=== PATIENT | female | born 1995 | race Asian ===

== ENCOUNTER 2019-01-11 14:59 | Emergency (ER) | payer OTHER ==
[~2019-01-11] VITALS: Ht 149.9 cm; Wt 71.2 kg
--- NOTE | 2019-01-11 15:19 | NUR ---
NO ANSWER FOR TRIAGE AT [id number]
[2019-01-11] MEDS ORDERED: DIPH,PERTUSS(ACELL),TET VAC/PF 0.5 ML IM-VACC ONE ×3 (15:30→16:24)
--- NOTE | 2019-01-11 16:34 | NUR ---
wound dressed by EDT
--- NOTE | 2019-01-11 16:48 | NUR ---
CHRISTINA Muniz discussed rabies vaccine/risk with pt, pt elects rabies vaccine. awaiting vaccine delivery from pharmacy.
[2019-01-11] MEDS ORDERED: RABIES IMMUNE GLOBULIN/PF 150 UNITS/ML, 2ML IM ONE (17:00)
[2019-01-11] MEDS ORDERED: RABIES VACCINE /PF 2.5 UNITS IM-VACC ONE (17:00)
[2019-01-11 18:23] VITALS: BP 119/68
--- NOTE | 2019-01-11 18:24 | NUR ---
pt medicated per emar, tolerated well. pt given rabies vaccine to right deltoid, and rabies immune globulin was splint into multiple doses, 1mL injected into tissue surrounding wound (per [facility] orders), 2mL injected into each gleuteal muscle, 2mL into each lateral thigh, and .5 mL into left ventrogluteal site. pt tolerated well with no s/sx adverse rxn. pt a&o, resps even and unlabored. pt given dc instructions and script, educated regarding augmentin rx. pt educated to have wound rechecked by provider 2 days from now, and return to ED to complete rabies vaccine series starting 01/14. pt demonstrates understanding. pt's wound re-dressed. pt amb to dc desk with steady gait, nadn at dc.
== END 2019-01-11 18:25 | disposition home or self-care (01) ==
LOC: ED 18:16
DX: S61.452A Open bite of left hand, initial encounter (principal); J45.909 Unspecified asthma, uncomplicated; F17.200 Nicotine dependence, unspecified, uncomplicated; W55.01XA Bitten by cat, initial encounter; Y93.89 Activity, other specified; Y92.89 Other specified places as the place of occurrence of the external cause; Y99.8 Other external cause status
CPT/HCPCS: 90375; 90471; 90472; 90675; 90715; 96372; 99283

== ENCOUNTER 2019-01-12 14:24 | Inpatient (IN) | payer SELFPAY ==
[~2019-01-12] VITALS: Ht 149.9 cm; Wt 70.5 kg
[2019-01-12 15:11] LABS: BASOPHILS # (AUTO) 0.03 x10^3/uL (0-0.1); BASOPHILS % (AUTO) 0 % (0-1); EOSINOPHILS # (AUTO) 0.09 x10^3/uL (0-0.4); EOSINOPHILS % (AUTO) 1 % (1-7); LYMPHOCYTES # (AUTO) 1.32 x10^3/uL (1-3.4); LYMPHOCYTES % (AUTO) 16 % (22-44); MD NO; MEAN CORPUSCULAR HEMOGLOBIN 29.3 pg (27.0-34.8); MEAN CORPUSCULAR HGB CONC 32.3 g/dL (32.4-35.8); MEAN CORPUSCULAR VOLUME 90.7 fL (80-100); MEAN PLATELET VOLUME 8.1 fL (7.4-10.4); MONOCYTES # (AUTO) 0.46 x10^3/uL (0.2-0.8); MONOCYTES % (AUTO) 6 % (2-9); NEUTROPHILS # (AUTO) 6.35 x10^3/uL (1.8-6.8); NEUTROPHILS % (AUTO) 77 % (42-75); PLATELET COUNT 361 x10^3/uL (130-400); RED BLOOD COUNT 4.54 x10^6/uL (3.82-5.3); RED CELL DISTRIBUTION WIDTH 14.4 % (9.6-15.2)
[2019-01-12] MEDS ORDERED: AMPICILLIN/SULBACTAM 3 GM in SODIUM CHLORIDE 0.9% 100 ML IV ONE (16:30)
[2019-01-12] MEDS ORDERED: SODIUM CHLORIDE FLUSH 10ML SYR IVF ONE (16:30)
[2019-01-12 16:52] LABS: ALBUMIN 3.9 g/dL (3.4-5.0); ANION GAP 5 mmol/L (5-15); CALCIUM 8.8 mg/dL (8.5-10.1); CHLORIDE 108 mmol/L (98-107); CREATININE 0.85 mg/dL (0.55-1.02)
[2019-01-12] MEDS ORDERED: SODIUM CHLORIDE FLUSH 10ML SYR IVF PRN (18:00)
[2019-01-12] MEDS ORDERED: DOCUSATE 100 MG CAPSULE PO PRN (18:30)
[2019-01-12] MEDS ORDERED: ACETAMINOPHEN 325 MG TABLET PO PRN (18:30)
[2019-01-12] MEDS ORDERED: TEMAZEPAM 15 MG CAPSULE PO PRN (18:30)
[2019-01-12] MEDS ORDERED: ONDANSETRON ODT 4 MG PO PRN (18:30)
[2019-01-12] MEDS ORDERED: LIDODERM 5% PATCH TD PRN (18:30)
[2019-01-12 19:32] VITALS: BP 117/69
[2019-01-13 00:02] VITALS: BP 113/64
[2019-01-13] MEDS: AMPICILLIN/SULBACTAM 3 GM in SODIUM CHLORIDE 0.9% 100 ML IV SCH ×3 (00:25→16:50)
[2019-01-13 02:37] VITALS: BP 117/69
[2019-01-13 05:41] LABS: BASOPHILS # (AUTO) 0.04 x10^3/uL (0-0.1); BASOPHILS % (AUTO) 1 % (0-1); EOSINOPHILS # (AUTO) 0.13 x10^3/uL (0-0.4); EOSINOPHILS % (AUTO) 2 % (1-7); LYMPHOCYTES # (AUTO) 1.39 x10^3/uL (1-3.4); LYMPHOCYTES % (AUTO) 25 % (22-44); MD NO; MEAN CORPUSCULAR HEMOGLOBIN 30.7 pg (27.0-34.8); MEAN CORPUSCULAR HGB CONC 33.7 g/dL (32.4-35.8); MEAN CORPUSCULAR VOLUME 90.9 fL (80-100); MEAN PLATELET VOLUME 7.9 fL (7.4-10.4); MONOCYTES % (AUTO) 9 % (2-9); NEUTROPHILS # (AUTO) 3.48 x10^3/uL (1.8-6.8); NEUTROPHILS % (AUTO) 63 % (42-75); PLATELET COUNT 280 x10^3/uL (130-400); RED BLOOD COUNT 3.93 x10^6/uL (3.82-5.3); RED CELL DISTRIBUTION WIDTH 14.2 % (9.6-15.2)
[2019-01-13 05:49] LABS: CHLORIDE 111 mmol/L (98-107)
[2019-01-13 05:53] LABS: ANION GAP 6 mmol/L (5-15); CREATININE 0.77 mg/dL (0.55-1.02)
[2019-01-13 07:13] VITALS: BP 119/62
[2019-01-13 15:20] VITALS: BP 100/67
[2019-01-13 18:54] VITALS: BP 99/61
[2019-01-14 00:16] VITALS: BP 102/68
[2019-01-14] MEDS: AMPICILLIN/SULBACTAM 3 GM in SODIUM CHLORIDE 0.9% 100 ML IV SCH ×3 (00:18→17:27)
[2019-01-14 05:42] LABS: BASOPHILS # (AUTO) 0.06 x10^3/uL (0-0.1); BASOPHILS % (AUTO) 1 % (0-1); EOSINOPHILS # (AUTO) 0.23 x10^3/uL (0-0.4); EOSINOPHILS % (AUTO) 4 % (1-7); LYMPHOCYTES # (AUTO) 1.65 x10^3/uL (1-3.4); LYMPHOCYTES % (AUTO) 28 % (22-44); MD NO; MEAN CORPUSCULAR HEMOGLOBIN 30.7 pg (27.0-34.8); MEAN CORPUSCULAR HGB CONC 33.6 g/dL (32.4-35.8); MEAN CORPUSCULAR VOLUME 91.4 fL (80-100); MEAN PLATELET VOLUME 8.1 fL (7.4-10.4); MONOCYTES # (AUTO) 0.43 x10^3/uL (0.2-0.8); MONOCYTES % (AUTO) 7 % (2-9); NEUTROPHILS # (AUTO) 3.55 x10^3/uL (1.8-6.8); NEUTROPHILS % (AUTO) 60 % (42-75); PLATELET COUNT 257 x10^3/uL (130-400); RED BLOOD COUNT 3.95 x10^6/uL (3.82-5.3); RED CELL DISTRIBUTION WIDTH 14.3 % (9.6-15.2)
[2019-01-14 05:48] LABS: ANION GAP 4 mmol/L (5-15); CALCIUM 8.2 mg/dL (8.5-10.1); CHLORIDE 112 mmol/L (98-107); CREATININE 0.81 mg/dL (0.55-1.02)
[2019-01-14] MEDS: RABIES VACCINE /PF 2.5 UNITS IM-VACC ONE ×2 (10:48→11:36)
[2019-01-14 14:00] VITALS: BP 96/61
[2019-01-14 18:35] VITALS: BP 105/69
[2019-01-15 00:05] VITALS: BP 101/68
[2019-01-15] MEDS: AMPICILLIN/SULBACTAM 3 GM in SODIUM CHLORIDE 0.9% 100 ML IV SCH ×3 (00:39→16:55)
[2019-01-15 05:50] LABS: BASOPHILS # (AUTO) 0.04 x10^3/uL (0-0.1); BASOPHILS % (AUTO) 1 % (0-1); EOSINOPHILS # (AUTO) 0.27 x10^3/uL (0-0.4); EOSINOPHILS % (AUTO) 4 % (1-7); LYMPHOCYTES # (AUTO) 1.21 x10^3/uL (1-3.4); LYMPHOCYTES % (AUTO) 19 % (22-44); MD NO; MEAN CORPUSCULAR HEMOGLOBIN 29.6 pg (27.0-34.8); MEAN CORPUSCULAR HGB CONC 32.8 g/dL (32.4-35.8); MEAN CORPUSCULAR VOLUME 90.2 fL (80-100); MEAN PLATELET VOLUME 8.1 fL (7.4-10.4); MONOCYTES # (AUTO) 0.39 x10^3/uL (0.2-0.8); MONOCYTES % (AUTO) 6 % (2-9); NEUTROPHILS # (AUTO) 4.43 x10^3/uL (1.8-6.8); NEUTROPHILS % (AUTO) 70 % (42-75); PLATELET COUNT 250 x10^3/uL (130-400); RED BLOOD COUNT 4.13 x10^6/uL (3.82-5.3); RED CELL DISTRIBUTION WIDTH 14.2 % (9.6-15.2)
[2019-01-15 05:58] LABS: ANION GAP 7 mmol/L (5-15); CALCIUM 8.4 mg/dL (8.5-10.1); CHLORIDE 109 mmol/L (98-107); CREATININE 0.75 mg/dL (0.55-1.02)
[2019-01-15 06:59] LABS: HCT (SEDRATE) 37.2 % (34.6-47.8)
[2019-01-15 07:08] VITALS: BP 112/70
[2019-01-15 12:50] VITALS: BP 104/67
[2019-01-15] MEDS ORDERED: GADOBUTROL 7.5 MMOL/7.5 ML PFS ONE (14:58)
[2019-01-15 20:53] VITALS: BP 109/75
[2019-01-16] MEDS: AMPICILLIN/SULBACTAM 3 GM in SODIUM CHLORIDE 0.9% 100 ML IV SCH ×3 (00:40→16:02)
[2019-01-16 02:03] VITALS: BP 107/69
[2019-01-16 06:10] LABS: BASOPHILS # (AUTO) 0.03 x10^3/uL (0-0.1); BASOPHILS % (AUTO) 1 % (0-1); EOSINOPHILS # (AUTO) 0.36 x10^3/uL (0-0.4); EOSINOPHILS % (AUTO) 6 % (1-7); LYMPHOCYTES # (AUTO) 1.72 x10^3/uL (1-3.4); LYMPHOCYTES % (AUTO) 30 % (22-44); MD NO; MEAN CORPUSCULAR HEMOGLOBIN 30.3 pg (27.0-34.8); MEAN CORPUSCULAR HGB CONC 33.6 g/dL (32.4-35.8); MEAN CORPUSCULAR VOLUME 90.3 fL (80-100); MEAN PLATELET VOLUME 7.8 fL (7.4-10.4); MONOCYTES # (AUTO) 0.38 x10^3/uL (0.2-0.8); MONOCYTES % (AUTO) 7 % (2-9); NEUTROPHILS # (AUTO) 3.29 x10^3/uL (1.8-6.8); NEUTROPHILS % (AUTO) 57 % (42-75); PLATELET COUNT 255 x10^3/uL (130-400); RED BLOOD COUNT 3.97 x10^6/uL (3.82-5.3); RED CELL DISTRIBUTION WIDTH 14.1 % (9.6-15.2)
[2019-01-16 06:16] LABS: CHLORIDE 109 mmol/L (98-107)
[2019-01-16 06:22] LABS: ANION GAP 4 mmol/L (5-15); CALCIUM 8.3 mg/dL (8.5-10.1); CREATININE 0.76 mg/dL (0.55-1.02)
[2019-01-16 07:18] VITALS: BP 87/51
[2019-01-16 21:10] VITALS: BP 104/72
[2019-01-17] MEDS: AMPICILLIN/SULBACTAM 3 GM in SODIUM CHLORIDE 0.9% 100 ML IV SCH ×3 (00:33→16:25)
[2019-01-17 01:30] VITALS: BP 96/54
[2019-01-17 06:18] LABS: BASOPHILS # (AUTO) 0.05 x10^3/uL (0-0.1); BASOPHILS % (AUTO) 1 % (0-1); EOSINOPHILS # (AUTO) 0.36 x10^3/uL (0-0.4); EOSINOPHILS % (AUTO) 6 % (1-7); LYMPHOCYTES # (AUTO) 2.06 x10^3/uL (1-3.4); LYMPHOCYTES % (AUTO) 34 % (22-44); MD NO; MEAN CORPUSCULAR HEMOGLOBIN 29.5 pg (27.0-34.8); MEAN CORPUSCULAR HGB CONC 32.4 g/dL (32.4-35.8); MEAN CORPUSCULAR VOLUME 90.9 fL (80-100); MEAN PLATELET VOLUME 8.1 fL (7.4-10.4); MONOCYTES # (AUTO) 0.41 x10^3/uL (0.2-0.8); MONOCYTES % (AUTO) 7 % (2-9); NEUTROPHILS # (AUTO) 3.12 x10^3/uL (1.8-6.8); NEUTROPHILS % (AUTO) 52 % (42-75); PLATELET COUNT 292 x10^3/uL (130-400); RED BLOOD COUNT 4.16 x10^6/uL (3.82-5.3); RED CELL DISTRIBUTION WIDTH 14.8 % (9.6-15.2)
[2019-01-17 06:32] LABS: CHLORIDE 109 mmol/L (98-107)
[2019-01-17 06:37] LABS: ANION GAP 6 mmol/L (5-15); C-REACTIVE PROTEIN, QUANT 0.41 mg/dL (0.02-0.49); CALCIUM 8.7 mg/dL (8.5-10.1); CREATININE 0.86 mg/dL (0.55-1.02)
[2019-01-17 08:36] VITALS: BP 102/71
[2019-01-17 14:21] VITALS: BP 103/70
[2019-01-17 20:40] VITALS: BP 104/76
[2019-01-18] MEDS: AMPICILLIN/SULBACTAM 3 GM in SODIUM CHLORIDE 0.9% 100 ML IV SCH ×2 (00:57→09:05)
[2019-01-18 01:00] VITALS: BP 97/71
[2019-01-18 05:34] LABS: BASOPHILS # (AUTO) 0.03 x10^3/uL (0-0.1); BASOPHILS % (AUTO) 1 % (0-1); EOSINOPHILS # (AUTO) 0.45 x10^3/uL (0-0.4); EOSINOPHILS % (AUTO) 7 % (1-7); LYMPHOCYTES # (AUTO) 1.83 x10^3/uL (1-3.4); LYMPHOCYTES % (AUTO) 29 % (22-44); MD NO; MEAN CORPUSCULAR HEMOGLOBIN 30.3 pg (27.0-34.8); MEAN CORPUSCULAR HGB CONC 33.5 g/dL (32.4-35.8); MEAN CORPUSCULAR VOLUME 90.5 fL (80-100); MEAN PLATELET VOLUME 7.8 fL (7.4-10.4); MONOCYTES # (AUTO) 0.35 x10^3/uL (0.2-0.8); MONOCYTES % (AUTO) 6 % (2-9); NEUTROPHILS # (AUTO) 3.57 x10^3/uL (1.8-6.8); NEUTROPHILS % (AUTO) 57 % (42-75); PLATELET COUNT 275 x10^3/uL (130-400); RED BLOOD COUNT 4.14 x10^6/uL (3.82-5.3); RED CELL DISTRIBUTION WIDTH 14.1 % (9.6-15.2)
[2019-01-18 05:48] LABS: CHLORIDE 107 mmol/L (98-107)
[2019-01-18 05:53] LABS: ANION GAP 5 mmol/L (5-15); CALCIUM 8.5 mg/dL (8.5-10.1); CREATININE 0.97 mg/dL (0.55-1.02)
[2019-01-18 07:30] VITALS: BP 130/64
[2019-01-18] MEDS ORDERED: RABIES VACCINE /PF 2.5 UNITS IM-VACC ONE (11:00)
[2019-01-18] MEDS ORDERED: AMOX1TAB64 PO (11:46)
== END 2019-01-18 15:00 | disposition home or self-care (01) | DRG 603 ==
LOC: ED 17:50 → EDIP 17:51 → ED 17:58 → 3NE 19:04 → 3WST 01-16 14:17 → DCLOUNGE 01-18 14:47
PROVIDERS: ADMIT Internal Medicine; ATTEND Internal Medicine
DX: L03.114 Cellulitis of left upper limb (principal); L02.512 Cutaneous abscess of left hand; L03.113 Cellulitis of right upper limb; S61.452A Open bite of left hand, initial encounter; F17.210 Nicotine dependence, cigarettes, uncomplicated; J45.909 Unspecified asthma, uncomplicated; I49.9 Cardiac arrhythmia, unspecified; Y93.89 Activity, other specified; W55.01XA Bitten by cat, initial encounter; Z83.3 Family history of diabetes mellitus; Y92.89 Other specified places as the place of occurrence of the external cause; Y99.8 Other external cause status
CPT/HCPCS: 36415; 80048; 82040; 85025; 85651; 86140; 90675; 93005; 93306; 96365; A9585; G0378; J0295

== ENCOUNTER 2019-01-25 07:44 | Emergency (ER) | payer SELFPAY ==
[~2019-01-25] VITALS: Ht 149.9 cm; Wt 73.7 kg
[~2019-01-25 07:44] MED LIST: AMOX1TAB64 PO
[2019-01-25 07:55] VITALS: BP 92/65
--- NOTE | 2019-01-25 08:17 | NUR ---
SPANISH TRANSLATOR: PT AMBULATORY TO ROOM FROM LOBBY
[2019-01-25] MEDS ORDERED: RABIES VACCINE /PF 2.5 UNITS IM-VACC ONE (08:30)
[2019-01-25] MEDS ORDERED: BACITRACIN ZINC OINT 500U/GM, 0.9 GM ONE (08:46)
--- NOTE | 2019-01-25 08:51 | NUR ---
Patient/Caregiver given discharge instructions and they have confirmed that they understand the instructions. Patient ambulatory with steady gait.
== END 2019-01-25 08:52 | disposition home or self-care (01) ==
LOC: ED 08:47
DX: S61.452A Open bite of left hand, initial encounter (principal); L03.114 Cellulitis of left upper limb; J45.909 Unspecified asthma, uncomplicated; W55.01XA Bitten by cat, initial encounter; Y93.89 Activity, other specified; Y92.89 Other specified places as the place of occurrence of the external cause; Y99.8 Other external cause status
CPT/HCPCS: 90471; 90675; 99283